=== PATIENT | female | born 1950 | race Caucasian/White ===

== ENCOUNTER 2021-08-24 19:32 | Outpatient (REF) | payer MEDICARE, BC, SELFPAY ==
[2021-08-26 15:47] LABS: COVID-19 RT-PCR UVMMC Result Negative (Negative)
== END 2021-08-24 19:33 | disposition home or self-care (01) ==
LOC: NCHCN 19:32
PROVIDERS: Visit Provider Internal Medicine
DX: Z20.822 Contact with and (suspected) exposure to COVID-19 (principal)
CPT/HCPCS: U0003

== ENCOUNTER → 2025-05-01 13:44 | Outpatient (BNVA) | payer MEDICARE, BC, SELFPAY | PROVIDERS: PCP Family Medicine; Referring Provider Internal Medicine; Visit Provider Psychiatry & Neurology Neurology | DX: G35 Multiple sclerosis (principal); R25.2 Cramp and spasm; R49.0 Dysphonia; R32 Unspecified urinary incontinence; I10 Essential (primary) hypertension | CPT/HCPCS: 99215; G2212 ==